=== PATIENT | male | born 1970 | race Caucasian/White ===

== ENCOUNTER 2022-08-31 09:58 | Outpatient (REF) | payer BC, SELFPAY ==
[2022-08-31 11:00] LABS: MANUAL DIFF FLAG NO
[2022-08-31 11:29] LABS: Basophils Percent Auto 0.5 % (0-2); Eosinophils Percent Auto 0.5 % (0-4); Hematocrit 46.4 % (42.0-52.0); Hemoglobin 15.2 g/dl (14.0-18.0); Imm Gran Abs Auto 0.01 X10*3/uL (0.00-0.03); Imm Gran Pct Auto 0.2 % (0.0-0.4); Lymphocytes Absolute Auto 2.5 X10*3/uL (1.2-4.9); Lymphocytes Percent Auto 44.8 % (20-40); Mean Corpuscular HGB Conc 32.8 g/dl (31.0-36.0); Mean Corpuscular Volume 88.5 fL (80.0-98.0); Mean Platelet Volume 9.7 fL (9.4-12.4); Monocytes Absolute Auto 0.5 X10*3/uL (0.1-1.2); Neutrophils Absolute Auto 2.5 x10*3/uL (2.0-8.3); Platelet Count 276 X10*3/uL (160-400); Red Blood Count 5.24 X10*6/uL (4.60-5.80); Red Cell Distribution Width 12.8 % (11.0-16.0); White Blood Count 5.5 X10*3/uL (4.8-10.8)
[2022-08-31 11:57] LABS: Alanine Aminotransferase 29 U/L (0-40); Albumin Level 4.8 g/dL (3.5-5.0); Alkaline Phosphatase 63 U/L (39-117); Anion Gap 14 (12-20); Aspartate Amino Transferase 20 U/L (5-37); Bilirubin Total 0.3 mg/dL (0.0-1.0); Blood Urea Nitrogen 13 mg/dL (9-16); Calcium 9.7 mg/dL (8.4-10.2); Carbon Dioxide 28 mmol/L (22-29); Chloride 103 mmol/L (96-108); Cholesterol 258 mg/dL; Estimated Glomerular Filt Rate > 60; Glucose Random 91 mg/dL (60-115); HDL Cholesterol 66 mg/dL; LDL Cholesterol Calculated 178 mg/dl; Potassium 4.9 mmol/L (3.3-5.1); Sodium 140 mmol/L (135-145); Total Protein 7.5 g/dL (6.5-8.0); Triglycerides 71 mg/dL
[2022-08-31 12:08] LABS: Prostate Specific Antigen 1.23 ng/mL (<0.05-4.0); Vitamin D 25-OH Total 28.2 ng/mL (>30)
== END 2022-08-31 09:59 | disposition home or self-care (01) ==
LOC: HO.MANLDS 09:58
PROVIDERS: Visit Provider Internal Medicine
DX: Z00.00 Encounter for general adult medical examination without abnormal findings (principal); Z12.5 Encounter for screening for malignant neoplasm of prostate
CPT/HCPCS: 36415; 80053; 80061; 82306; 84153; 85025

== ENCOUNTER 2022-12-11 08:03 | Outpatient (REF) | payer BC, SELFPAY ==
[2022-12-11 11:17] LABS: MANUAL DIFF FLAG NO
[2022-12-11 11:20] LABS: Basophils Percent Auto 0.7 % (0-2); Eosinophils Absolute Auto 0.1 X10*3/uL (0.0-0.4); Eosinophils Percent Auto 1.1 % (0-4); Hemoglobin 15.2 g/dl (14.0-18.0); Imm Gran Abs Auto 0.02 X10*3/uL (0.00-0.03); Imm Gran Pct Auto 0.3 % (0.0-0.4); Lymphocytes Percent Auto 48.4 % (20-40); Mean Corpuscular Hemoglobin 29.7 pg (27.0-33.0); Mean Platelet Volume 9.6 fL (9.4-12.4); Monocytes Absolute Auto 0.6 X10*3/uL (0.1-1.2); Monocytes Percent Auto 9.9 % (2-11); Neutrophils Absolute Auto 2.4 x10*3/uL (2.0-8.3); Neutrophils Percent Auto 39.6 % (45-73); Platelet Count 272 X10*3/uL (160-400); Red Blood Count 5.11 X10*6/uL (4.60-5.80); White Blood Count 6.1 X10*3/uL (4.8-10.8)
[2022-12-11 12:39] LABS: Alanine Aminotransferase 30 U/L (0-40); Albumin Level 4.5 g/dL (3.5-5.0); Alkaline Phosphatase 60 U/L (39-117); Anion Gap 13 (12-20); Aspartate Amino Transferase 21 U/L (5-37); Bilirubin Total 0.6 mg/dL (0.0-1.0); Blood Urea Nitrogen 13 mg/dL (9-16); Calcium 9.6 mg/dL (8.4-10.2); Carbon Dioxide 30 mmol/L (22-29); Chloride 104 mmol/L (96-108); Cholesterol 246 mg/dL; Estimated Glomerular Filt Rate > 60; Glucose Random 89 mg/dL (60-115); HDL Cholesterol 62 mg/dL; LDL Cholesterol Calculated 167 mg/dl; Potassium 4.8 mmol/L (3.3-5.1); Sodium 142 mmol/L (135-145); Total Protein 7.3 g/dL (6.5-8.0); Triglycerides 88 mg/dL
[2022-12-11 12:59] LABS: Prostate Specific Antigen 1.54 ng/mL (<0.05-4.0); Vitamin D 25-OH Total 17.9 ng/mL (>30)
== END 2022-12-11 08:04 | disposition home or self-care (01) ==
LOC: HO.MANLDS 08:03
PROVIDERS: Visit Provider Internal Medicine
DX: Z00.00 Encounter for general adult medical examination without abnormal findings (principal); Z12.5 Encounter for screening for malignant neoplasm of prostate
CPT/HCPCS: 36415; 80053; 80061; 82306; 84153; 85025

== ENCOUNTER 2024-01-15 07:37 | Outpatient (REF) | payer BC, SELFPAY ==
[2024-01-15 13:38] LABS: Troponin-I High Sensitivity < 2.7 ng/L (<3.5-35.0)
[2024-01-15 13:42] LABS: C Reactive Protein 0.31 mg/dL (< or = 0.50); Cholesterol 251 mg/dL (<200); HDL Cholesterol 69 mg/dL (>40); LDL Cholesterol Calculated 162 mg/dL (<100); Triglycerides 104 mg/dL (<150)
[2024-01-15 13:49] LABS: Vitamin D 25-OH Total 46.5 ng/mL (>30)
[2024-01-16 17:28] LABS: Homocysteine 13.1 umol/L (<11.4)
== END 2024-01-15 07:38 | disposition home or self-care (01) ==
LOC: HO.MANLDS 07:37
PROVIDERS: Visit Provider Internal Medicine
DX: E78.00 Pure hypercholesterolemia, unspecified (principal); E55.9 Vitamin D deficiency, unspecified; Z82.49 Family history of ischemic heart disease and other diseases of the circulatory system
CPT/HCPCS: 36415; 80061; 82306; 83090; 84484; 86140